=== PATIENT | female | born 1980 | race African-American/Black ===

== ENCOUNTER 2021-05-12 19:31 | Emergency (ER) | payer MEDICAID ==
[~2021-05-12] VITALS: Ht 180.3 cm; Wt 83.0 kg
[2021-05-12] MEDS ORDERED: METOCLOPRAMIDE HCL 5MG/ml INJ 2ml VIAL IV ONE (23:00)
[2021-05-12] MEDS ORDERED: SODIUM CHLORIDE 0.9% 1,000 ML IV ONE (23:00)
[2021-05-12] MEDS ORDERED: ACETAMINOPHEN 325 MG TAB PO ONE (23:00)
[2021-05-12] MEDS ORDERED: KETOROLAC TROMETH 30 MG/ML 1ML VIAL IV ONE (23:00)
[2021-05-12 23:24] LABS: Basophils # (auto) 0.1 10 ^3/uL (0-0.2); Basophils % (auto) 0.7 % (0.0-2.0); Eosinophils # (auto) 0.1 10 ^3/uL (0-0.8); Hemoglobin 14.7 g/dL (12.2-16.2); Lymphocytes # (auto) 2.5 10 ^3/uL (0.4-5.4); Lymphocytes % (auto) 28.1 % (10.0-50.0); Mean Corpuscular Hemoglobin 29.4 pg (28.0-32.0); Mean Corpuscular Hgb Conc. 34.2 g/dL (32.0-36.0); Monocytes # (auto) 0.5 10 ^3/uL (0-1.3); Monocytes % (auto) 5.6 % (0.0-12.0); Neutrophils # (auto) 5.7 10 ^3/uL (1.6-8.6); Neutrophils % (auto) 64.6 % (37.0-80.0); Nucleated Red Blood Cells % 0.1 %; Red Blood Cells 4.99 10^6/uL (4.0-5.20); Red Cell Distribution Width 14.2 % (11.8-14.3); White Blood Cell 8.9 10^3/uL (4.4-10.8)
[2021-05-13 01:08] VITALS: BP 108/75
== END 2021-05-13 01:14 | disposition home or self-care (01) ==
LOC: ER 19:31
DX: R07.89 Other chest pain (principal); R51.9 Headache, unspecified; J45.909 Unspecified asthma, uncomplicated; Z90.710 Acquired absence of both cervix and uterus; Z88.5 Allergy status to narcotic agent; Z88.8 Allergy status to other drugs, medicaments and biological substances; Z91.018 Allergy to other foods; Z91.040 Latex allergy status
CPT/HCPCS: 36415; 70450; 71046; 83880; 84484; 85025; 93005; 96361; 96374; 96375; 99285; J1885; J2765; J7030; 80053

== ENCOUNTER 2021-09-23 16:06 | Emergency (ER) | payer MEDICAID ==
[~2021-09-23] VITALS: Ht 177.8 cm; Wt 81.6 kg
[2021-09-23 19:48] LABS: Albumin 4.1 g/dL (3.4-5.0); Calcium 9.1 mg/dL (8.5-10.1); Potassium 4.1 mmol/L (3.5-5.1)
[2021-09-23 19:52] LABS: BUN/Creatinine Ratio 14.9; Bilirubin, Total 0.5 mg/dL (0.2-1.0); Total Protein 9.3 g/dL (6.4-8.2)
[2021-09-23 20:12] LABS: Basophils # (auto) 0.1 10 ^3/uL (0-0.2); Basophils % (auto) 0.5 % (0.0-2.0); Eosinophils # (auto) 0 10 ^3/uL (0-0.8); Eosinophils % (auto) 0.3 % (0.0-7.0); Hematocrit 44.6 % (36.0-46.0); Hemoglobin 15.4 g/dL (12.2-16.2); Lymphocytes # (auto) 1.7 10 ^3/uL (0.4-5.4); Lymphocytes % (auto) 15.6 % (10.0-50.0); Mean Corpuscular Hemoglobin 29.7 pg (28.0-32.0); Mean Corpuscular Hgb Conc. 34.6 g/dL (32.0-36.0); Mean Corpuscular Volume 85.9 fL (80.0-100.0); Monocytes # (auto) 0.5 10 ^3/uL (0-1.3); Monocytes % (auto) 4.6 % (0.0-12.0); Neutrophils # (auto) 8.5 10 ^3/uL (1.6-8.6); Nucleated Red Blood Cells % 0.1 %; Red Blood Cells 5.19 10^6/uL (4.0-5.20); Red Cell Distribution Width 13.7 % (11.8-14.3); White Blood Cell 10.7 10^3/uL (4.4-10.8)
[2021-09-23 21:17] LABS: Urine Bacteria NONE SEEN /hpf (None Seen); Urine Blood Negative /uL (Negative); Urine Hyaline Cast FEW /lpf (0 - 2); Urine Mucus FEW (None Seen); Urine Specific Gravity 1.022 (1.001-1.035); Urine WBC 1 /hpf (0 - 5)
[2021-09-23] MEDS ORDERED: ONDA-144 PO (22:57)
[2021-09-23] MEDS ORDERED: HYDR-4902 PO (22:57)
[2021-09-23] MEDS ORDERED: CIPR-173 PO (23:02)
[2021-09-24 00:21] VITALS: BP 123/67
== END 2021-09-24 00:33 | disposition home or self-care (01) ==
LOC: ER 16:06 → EDUNIT# 16:06 → EDBD 16:06 → ER 09-24 00:33
DX: K52.9 Noninfective gastroenteritis and colitis, unspecified (principal); J45.909 Unspecified asthma, uncomplicated; Z79.1 Long term (current) use of non-steroidal anti-inflammatories (NSAID); Z90.710 Acquired absence of both cervix and uterus; Z79.899 Other long term (current) drug therapy; Z88.5 Allergy status to narcotic agent; Z91.018 Allergy to other foods; Z91.040 Latex allergy status
CPT/HCPCS: 36415; 74176; 80053; 81001; 83605; 84702; 85025; 93005

== ENCOUNTER 2023-09-18 04:36 | Inpatient (IN) | payer MEDICAID ==
[~2023-09-18] VITALS: Ht 180.3 cm; Wt 102.8 kg
[~2023-09-18 04:36] MED LIST: CIPR-173 PO; HYDR-4902 PO; ONDA-144 PO
[2023-09-18 06:20] LABS: Basophils # (auto) 0 10 ^3/uL (0-0.2); Basophils % (auto) 0.4 % (0.0-2.0); Eosinophils # (auto) 0 10 ^3/uL (0-0.8); Eosinophils % (auto) 0.2 % (0.0-7.0); Hematocrit 40.3 % (36.0-46.0); Lymphocytes % (auto) 10.7 % (10.0-50.0); Mean Corpuscular Hemoglobin 28.1 pg (28.0-32.0); Mean Corpuscular Hgb Conc. 32.3 g/dL (32.0-36.0); Mean Corpuscular Volume 86.9 fL (80.0-100.0); Monocytes # (auto) 0.5 10 ^3/uL (0-1.3); Monocytes % (auto) 5.4 % (0.0-12.0); Neutrophils # (auto) 7.7 10 ^3/uL (1.6-8.6); Neutrophils % (auto) 83.3 % (37.0-80.0); Nucleated Red Blood Cells % 0.1 %; Red Blood Cells 4.63 10^6/uL (4.0-5.20); White Blood Cell 9.3 10^3/uL (4.4-10.8)
[2023-09-18 06:34] LABS: Alkaline Phosphatase 61 U/L (46-116); Aspartate Aminotransferase 10 U/L (13-40); BUN/Creatinine Ratio 19.1 (10.0-20.0); Bilirubin, Total 0.5 mg/dL (0.2-1.0); Blood Urea Nitrogen 13 mg/dL (9-23); Calcium 8.9 mg/dL (8.7-10.4); Glucose 95 mg/dL (74-106); Total Protein 7.2 g/dL (5.7-8.2)
[2023-09-18 06:40] LABS: Alanine Aminotransferase < 9 U/L (7-40)
[2023-09-18 06:42] LABS: Chloride 105 mmol/L (98-107); Potassium 3.9 mmol/L (3.5-5.1); Sodium 135 mmol/L (136-145)
[2023-09-18 06:45] LABS: Anion Gap 5 (5-15); Carbon Dioxide 25 mmol/L (20-30)
[2023-09-18] MEDS: KETOROLAC TROMETH 30 MG/ML 1ML VIAL IV ONE (06:45)
[2023-09-18] MEDS: ONDANSETRON HCL 4 MG/2 ML VIAL IV ONE (06:45)
[2023-09-18] MEDS: SODIUM CHLORIDE 0.9% 1,000 ML IV ONE (06:45)
[2023-09-18 07:15] LABS: Urine Bacteria None Seen /hpf (None Seen)
[2023-09-18 07:30] LABS: Urine Blood Negative /uL (Negative); Urine Clarity Clear (Clear); Urine Color Light-Yellow (Yellow); Urine Protein, UAD Negative (Negative); Urine Specific Gravity 1.017 (1.001-1.035); Urine Urobilinogen Normal (Negative); Urine WBC <1 /hpf (0 - 5); Urine pH 5.5 (5.0-9.0)
[2023-09-18] MEDS: metroNIDAZOLE 500MG/100ML 100 ML IV ONE (07:30)
[2023-09-18] MEDS ORDERED: MORPHINE SULFATE INJ 2 MG/ml SYRG IV PRN (08:45)
[2023-09-18] MEDS: SODIUM CHLORIDE 0.9% 1,000 ML IV SCH (08:45)
[2023-09-18] MEDS: PIPERACILLIN-TAZOB 3.375GM 100 ML IV ONE (08:45)
[2023-09-18 09:09] LABS: INR 0.98 (0.9-1.15); Prothrombin Time 10.4 sec (9.3-11.8)
[2023-09-18 13:00] VITALS: BP 128/78; PULSE 58; RESP 18; TEMP 97.9; O2SAT 100
[2023-09-18] MEDS: PIPERACILLIN-TAZOB 3.375GM 100 ML IV SCH ×2 (14:03→21:40)
[2023-09-18] MEDS: HYDROmorphone HCL 2 MG/ML VL/or syr IV PRN (14:13)
[2023-09-18] MEDS ORDERED: BECL80AE11 INH (15:25)
[2023-09-18] MEDS ORDERED: ALBU108A5 INH (15:25)
[2023-09-18 17:00] VITALS: BP 110/63; PULSE 69; RESP 18; TEMP 98.8; O2SAT 98
[2023-09-18 20:00] VITALS: BP 115/69; PULSE 71; RESP 16; TEMP 98.7; O2SAT 95
[2023-09-18 22:00] VITALS: BP 115/69; PULSE 71; RESP 16; TEMP 98.7; O2SAT 95
[2023-09-18] MEDS ORDERED: ATOR10TA PO (23:13)
[2023-09-18] MEDS ORDERED: ASPI-543 PO (23:13)
[2023-09-19] VITALS (14 sets, daily range): BP systolic 90–148; BP diastolic 44–71; PULSE 57–80; RESP 14–18; TEMP 98.1–98.7; O2SAT 96–100
[2023-09-19 06:34] LABS: Basophils # (auto) 0 10 ^3/uL (0-0.2); Basophils % (auto) 0.7 % (0.0-2.0); Eosinophils # (auto) 0.1 10 ^3/uL (0-0.8); Hematocrit 36.2 % (36.0-46.0); Hemoglobin 11.9 g/dL (12.2-16.2); Lymphocytes # (auto) 1.6 10 ^3/uL (0.4-5.4); Lymphocytes % (auto) 23.9 % (10.0-50.0); Mean Corpuscular Hemoglobin 28.3 pg (28.0-32.0); Mean Corpuscular Hgb Conc. 32.8 g/dL (32.0-36.0); Mean Corpuscular Volume 86.1 fL (80.0-100.0); Monocytes # (auto) 0.6 10 ^3/uL (0-1.3); Neutrophils # (auto) 4.3 10 ^3/uL (1.6-8.6); Neutrophils % (auto) 65.4 % (37.0-80.0); Nucleated Red Blood Cells % 0.1 %; Red Blood Cells 4.21 10^6/uL (4.0-5.20); Red Cell Distribution Width 13.7 % (11.8-14.3); White Blood Cell 6.7 10^3/uL (4.4-10.8)
[2023-09-19 06:45] LABS: Albumin 3.8 g/dL (3.2-4.8); Alkaline Phosphatase 57 U/L (46-116); Anion Gap 6 (5-15); Aspartate Aminotransferase 8 U/L (13-40); BUN/Creatinine Ratio 11.8 (10.0-20.0); Bilirubin, Total 0.9 mg/dL (0.2-1.0); Blood Urea Nitrogen 10 mg/dL (9-23); Carbon Dioxide 27 mmol/L (20-30); Chloride 107 mmol/L (98-107); Glucose 91 mg/dL (74-106); Potassium 3.4 mmol/L (3.5-5.1); Sodium 140 mmol/L (136-145); Total Protein 6.6 g/dL (5.7-8.2)
[2023-09-19 06:50] LABS: Alanine Aminotransferase < 9 U/L (7-40)
[2023-09-19] MEDS: IPRATROPIUM BROM 0.5 MG/2.5ML INH SOL NEB SCH (12:21)
[2023-09-19] MEDS: ALBUTEROL SULF 2.5 MG/0.5ML(0.5%) NEB SOLN NEB SCH (12:21)
[2023-09-19] MEDS: POTASSIUM CHL 20 Meq TABLET PO ONE (13:16)
[2023-09-19] MEDS: HYDROcodone-ACET 5/325MG TAB PO PRN (13:17)
[2023-09-19] MEDS: metroNIDAZOLE 500MG/100ML 100 ML IV SCH (13:50)
[2023-09-19] MEDS: SODIUM CHLORIDE 0.9% 1,000 ML IV SCH (13:50)
[2023-09-20] VITALS (13 sets, daily range): BP systolic 94–121; BP diastolic 55–64; PULSE 52–97; RESP 14–18; TEMP 97.6–98.4; O2SAT 98–100
[2023-09-20 06:30] LABS: Basophils # (auto) 0 10 ^3/uL (0-0.2); Basophils % (auto) 0.3 % (0.0-2.0); Eosinophils # (auto) 0.1 10 ^3/uL (0-0.8); Eosinophils % (auto) 1.2 % (0.0-7.0); Hematocrit 35.1 % (36.0-46.0); Hemoglobin 11.3 g/dL (12.2-16.2); Lymphocytes # (auto) 1.4 10 ^3/uL (0.4-5.4); Lymphocytes % (auto) 21.5 % (10.0-50.0); Mean Corpuscular Hgb Conc. 32.2 g/dL (32.0-36.0); Mean Corpuscular Volume 86.7 fL (80.0-100.0); Monocytes # (auto) 0.6 10 ^3/uL (0-1.3); Monocytes % (auto) 9.8 % (0.0-12.0); Neutrophils # (auto) 4.4 10 ^3/uL (1.6-8.6); Neutrophils % (auto) 67.2 % (37.0-80.0); Nucleated Red Blood Cells % 0.1 %; Red Blood Cells 4.05 10^6/uL (4.0-5.20); Red Cell Distribution Width 13.9 % (11.8-14.3); White Blood Cell 6.5 10^3/uL (4.4-10.8)
[2023-09-20 06:31] LABS: Anion Gap 4 (5-15); Carbon Dioxide 25 mmol/L (20-30); Chloride 109 mmol/L (98-107); Potassium 3.5 mmol/L (3.5-5.1); Sodium 138 mmol/L (136-145)
[2023-09-20 06:37] LABS: BUN/Creatinine Ratio 10.3 (10.0-20.0); Blood Urea Nitrogen 6 mg/dL (9-23); Glucose 92 mg/dL (74-106)
[2023-09-20 09:23] LABS: Hepatitis B Surface Antigen Negative (Negative)
[2023-09-20 09:45] LABS: Hepatitis C Antibody Negative (Negative)
[2023-09-20] MEDS: cefTRIAXone 1GM/50ML D5W 50 ML IV SCH (10:13)
[2023-09-20] MEDS: SODIUM CHLORIDE 0.9% 1,000 ML IV SCH (10:13)
[2023-09-21] VITALS (12 sets, daily range): BP systolic 97–152; BP diastolic 55–64; PULSE 53–78; RESP 16–20; TEMP 97.5–98.5; O2SAT 95–100
[2023-09-21] MEDS: SODIUM CHLORIDE 0.9% 500 ML IV ONE (11:02)
[2023-09-21] MEDS: cefTRIAXone 1GM/50ML D5W 50 ML IV ONE (13:32)
[2023-09-22] VITALS (11 sets, daily range): BP systolic 110–127; BP diastolic 65–79; PULSE 60–88; RESP 16–20; TEMP 97.5–98.4; O2SAT 98–100
[2023-09-22] MEDS: ONDANSETRON HCL 4 MG/2 ML VIAL IV PRN (05:56)
[2023-09-22] MEDS: HYDROmorphone HCL 2 MG/ML VL/or syr IV PRN (05:58)
[2023-09-22 06:30] LABS: Basophils # (auto) 0 10 ^3/uL (0-0.2); Basophils % (auto) 0.4 % (0.0-2.0); Eosinophils # (auto) 0.1 10 ^3/uL (0-0.8); Eosinophils % (auto) 1.4 % (0.0-7.0); Hematocrit 33.2 % (36.0-46.0); Hemoglobin 10.9 g/dL (12.2-16.2); Lymphocytes # (auto) 1.6 10 ^3/uL (0.4-5.4); Lymphocytes % (auto) 27.5 % (10.0-50.0); Mean Corpuscular Hemoglobin 28.6 pg (28.0-32.0); Mean Corpuscular Hgb Conc. 32.8 g/dL (32.0-36.0); Mean Corpuscular Volume 87.3 fL (80.0-100.0); Monocytes # (auto) 0.5 10 ^3/uL (0-1.3); Monocytes % (auto) 8.9 % (0.0-12.0); Neutrophils # (auto) 3.7 10 ^3/uL (1.6-8.6); Neutrophils % (auto) 61.8 % (37.0-80.0); Red Blood Cells 3.81 10^6/uL (4.0-5.20); Red Cell Distribution Width 13.9 % (11.8-14.3); White Blood Cell 5.9 10^3/uL (4.4-10.8)
[2023-09-22 06:47] LABS: Albumin 3.6 g/dL (3.2-4.8); Alkaline Phosphatase 48 U/L (46-116); Anion Gap 4 (5-15); Aspartate Aminotransferase 8 U/L (13-40); Bilirubin, Total 0.4 mg/dL (0.2-1.0); Calcium 8.6 mg/dL (8.5-10.1); Carbon Dioxide 25 mmol/L (20-30); Chloride 111 mmol/L (98-107); Glucose 89 mg/dL (74-106); Potassium 3.7 mmol/L (3.5-5.1); Sodium 140 mmol/L (136-145)
[2023-09-22 06:48] LABS: Total Protein 6.3 g/dL (5.7-8.2)
[2023-09-22 06:53] LABS: Alanine Aminotransferase < 9 U/L (7-40); BUN/Creatinine Ratio 7.5 (10.0-20.0); Blood Urea Nitrogen < 5 mg/dL (9-23)
[2023-09-22] MEDS: cefTRIAXone 2GM/50ML D5W 50 ML IV SCH (09:07)
[2023-09-22] MEDS: DOCUSATE SOD 100 MG CAP PO PRN (21:25)
[2023-09-23] VITALS (11 sets, daily range): BP systolic 100–122; BP diastolic 56–69; PULSE 63–82; RESP 16–20; TEMP 98–98.7; O2SAT 96–100
[2023-09-23 06:15] LABS: Basophils # (auto) 0 10 ^3/uL (0-0.2); Basophils % (auto) 0.5 % (0.0-2.0); Eosinophils # (auto) 0.1 10 ^3/uL (0-0.8); Hematocrit 38.3 % (36.0-46.0); Hemoglobin 12.1 g/dL (12.2-16.2); Lymphocytes # (auto) 1.7 10 ^3/uL (0.4-5.4); Lymphocytes % (auto) 26.7 % (10.0-50.0); Mean Corpuscular Hemoglobin 28.4 pg (28.0-32.0); Mean Corpuscular Hgb Conc. 31.6 g/dL (32.0-36.0); Mean Corpuscular Volume 90.1 fL (80.0-100.0); Monocytes # (auto) 0.5 10 ^3/uL (0-1.3); Monocytes % (auto) 8.2 % (0.0-12.0); Neutrophils # (auto) 4.1 10 ^3/uL (1.6-8.6); Neutrophils % (auto) 63.6 % (37.0-80.0); Nucleated Red Blood Cells % 0.1 %; Red Blood Cells 4.25 10^6/uL (4.0-5.20); Red Cell Distribution Width 14.6 % (11.8-14.3); White Blood Cell 6.5 10^3/uL (4.4-10.8)
[2023-09-23 06:33] LABS: Chloride 110 mmol/L (98-107); Potassium 3.7 mmol/L (3.5-5.1); Sodium 137 mmol/L (136-145)
[2023-09-23 06:34] LABS: Anion Gap 6 (5-15); Calcium 9.2 mg/dL (8.7-10.4); Carbon Dioxide 21 mmol/L (20-30)
[2023-09-23 06:39] LABS: Glucose 89 mg/dL (74-106)
[2023-09-23 06:42] LABS: BUN/Creatinine Ratio 7.1 (10.0-20.0); Blood Urea Nitrogen < 5 mg/dL (9-23)
[2023-09-23] MEDS ORDERED: IOHEXOL 300 MG/ML 100ML BOTTLE IJ ONE (09:53)
[2023-09-24] VITALS (10 sets, daily range): BP systolic 108–122; BP diastolic 62–76; PULSE 66–79; RESP 16–18; TEMP 97–98.2; O2SAT 96–100
[2023-09-24] MEDS ORDERED: DOCU-94 PO (10:25)
[2023-09-24] MEDS ORDERED: LEVO500T91 PO (10:25)
[2023-09-24] MEDS ORDERED: MET500T PO (10:25)
[2023-09-24] MEDS: DOCUSATE SOD 100 MG CAP PO ONE (11:29)
== END 2023-09-24 13:45 | disposition home or self-care (01) | DRG 244 ==
LOC: ER 04:36 → EDBD 04:36 → OVERFLOW 10:31 → EAST 12:05
PROVIDERS: ADMIT Nurse Practitioner Family; ATTEND Internal Medicine
DX: K57.32 Diverticulitis of large intestine without perforation or abscess without bleeding (principal); K56.7 Ileus, unspecified; I95.9 Hypotension, unspecified; J45.909 Unspecified asthma, uncomplicated; E66.9 Obesity, unspecified; E03.9 Hypothyroidism, unspecified; Z91.018 Allergy to other foods; Z98.891 History of uterine scar from previous surgery; Z90.710 Acquired absence of both cervix and uterus; Z68.31 Body mass index [BMI] 31.0-31.9, adult
CPT/HCPCS: 36415; 74176; 74177; 80048; 80053; 81001; 81025; 84443; 85025; 85610; 86803; 87340; 93005; 94640; G0378; J2405; J2543; J3490

== ENCOUNTER 2025-03-17 22:52 | Emergency (ER) | payer MEDICAID ==
[~2025-03-17 22:52] MED LIST changes: +ALBU108A5 INH; +ASPI-543 PO; +ATOR10TA PO; +BECL80AE11 INH; -CIPR-173 PO; +DOCU-94 PO; -HYDR-4902 PO; +LEVO500T91 PO; +MET500T PO; -ONDA-144 PO
[2025-03-17 22:53] VITALS: BP 107/72; RESP 18; O2SAT 97
[2025-03-17 23:47] LABS: Hematocrit 39.2 % (36.0-46.0); Hemoglobin 13.1 g/dL (12.2-16.2); Mean Corpuscular Hemoglobin 28.9 pg (28.0-32.0); Mean Corpuscular Volume 86.3 fL (80.0-100.0); Nucleated Red Blood Cells % 0.1 %
--- NOTE | 2025-03-18 00:05 | DVH ---
CHEST RADIOGRAPH Indication: cp Technique: Single frontal view of the chest was obtained Comparison: CHEST TWO VIEWS ROUTINE on DOS: 05/12/21 FINDINGS: Lines and Tubes: None Lungs: No focal consolidation. Pleura: No effusion. No pneumothorax. Cardiomediastinal contours: Unremarkable Bones: No acute osseous abnormality. IMPRESSION: 1. No acute cardiopulmonary disease.
[2025-03-18 00:08] VITALS: PULSE 49
[2025-03-18 00:18] LABS: Chloride 105 mmol/L (98-107); Potassium 3.7 mmol/L (3.5-5.1); Sodium 142 mmol/L (136-145)
[2025-03-18 00:20] LABS: Anion Gap 11 (5-15); Calcium 9.0 mg/dL (8.7-10.4); Carbon Dioxide 26 mmol/L (20-31)
[2025-03-18 00:25] LABS: BUN/Creatinine Ratio 13.4 (10.0-20.0); Blood Urea Nitrogen 9 mg/dL (9-23); Glucose 95 mg/dL (74-106)
--- NOTE | 2025-03-18 00:35 | ED.PDOC ---
HPI Comments Patient complaining of left-sided chest wall pain has been intermittent for the last three days. States he has been getting worse. Reports it as sharp and dull at the same time. Says she does have a history of asthma she has been having coughing fits over the last four days. Was concerned when the pain was not improving today. No fever no chills nothing makes it better, nothing makes it worse Chief Complaint: Chest Pain Time Seen by MD: 23:36 Primary Care Provider: DR. DUNCAN Reviewed Notes: Nurses Notes Allergies: Coded Allergies: Latex (Verified Allergy, Unknown, 05/12/21) Morphine (Verified Allergy, Unknown, 05/12/21) Mushroom Extract Complex (Verified Allergy, Unknown, 05/12/21) Uncoded Allergies: IVORY (Allergy, Unknown, 05/12/21) MUSHROOMS (Allergy, Unknown, 05/12/21) Home Meds Active Scripts Docusate Sodium (Colace) 100 Mg Cap, 1 CAP PO BID PRN for 30 Days, #60 CAP 1 Refill Prov:MARIS KILPATRICK MD 09/24/23 Metronidazole (Metronidazole) 500 Mg Tab, 500 MG PO TID for 10 Days, #30 TAB Prov:MARIS KILPATRICK MD 09/24/23 Levofloxacin Hemihydrate (LEVAQUIN 500 MG) 500 Mg Tab, 500 MG PO DAILY for 10 Days, #10 TAB Prov:MARIS KILPATRICK MD 09/24/23 Reported Medications Atorvastatin Calcium (Lipitor) 10 Mg Tab, 1 TAB PO DAILY@DINNER, #30 TAB 5 Refills 09/18/23 Aspirin (Aspir-Low) 81 Mg Tab, 81 MG PO DAILY for 30 Days, MG 09/18/23 Beclomethasone Dipropionate (Qvar Redihaler) 80 Mcg/Act Aer, 2 PUFF INH BID 09/18/23 Albuterol Sulfate (Albuterol Sulfate Hfa) 108 Mcg/Act Aer, 2 PUFF INH Q4HPRN PRN for asthma 09/18/23 Information Source: Patient Mode of Arrival: Ambulatory Past Medical History PAST MEDICAL HISTORY: Asthma, Cancer Surgical History: Hysterectomy 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 History Family History Family History: Family hx of heart vickie Social History Smoker: Non-Smoker Alcohol: Denies ETOH Use Drugs: Denies Drug Use Lives In: Home Constitutional: denies: chills, diaphoresis, fatigue, fever, malaise, sweats, weakness, others EENTM: denies: blurred vision, double vision, ear bleeding, ear discharge, ear drainage, ear pain, ear ringing, eye pain, eye redness, hearing loss, mouth pain, mouth swelling, nasal discharge, nose bleeding, nose congestion, nose pain, photophobia, tearing, throat pain, throat swelling, voice changes, others Respiratory: denies: cough, hemoptysis, orthopnea, SOB at rest, shortness of breath, SOB with excertion, stridor, wheezing, others Cardiovascular: reports: chest pain; denies: dizzy spells, diaphoresis, Dyspnea on exertion, edema, irregular heart beat, left arm pain, lightheadedness, palpitations, PND, syncope, others Gastrointestinal: denies: abdomen distended, abdominal pain, blood streaked bowels, constipated, diarrhea, dysphagia, difficulty swallowing, hematemesis, melena, nausea, poor appetite, poor fluid intake, rectal bleeding, rectal pain, vomiting, others Genitourinary: denies: abnormal vagina bleeding, burning, dyspareunia, dysuria, flank pain, frequency, hematuria, incontinence, pain, , vagina discharge, urgency, others Neurological: denies: dizziness, fainting, headache, left sided numbness, left sided weakness, numbness, paresthesia, pre-existing deficit, right sided numbne ss, right sided weakness, seizure, speech problems, tingling, tremors, weakness, others Musculoskeletal: denies: back pain, gout, joint pain, joint swelling, muscle pain, muscle stiffness, neck pain, others Integumetry: denies: bruises, change in color, change in hair/nails, dryness, laceration, lesions, lumps, rash, wounds, others Allergic/Immunocompromised: denies: Difficulty Healing, Frequent Infections, Hives, Itching, others Physical Exam General Appearance: No Apparent Distress, Normal HEENT: Normal ENT Inspection, Pharynx Normal, TMs Normal Neck: Full Range of Motion, Non-Tender, Normal, Normal Inspection Respiratory: Chest Non-Tender, Lungs Clear, No Accessory Muscle Use, No Respiratory Distress, Normal Breath Sounds Cardiovascular: No Edema, No JVD, No Murmur, No Gallop, Normal Peripheral Pulses, Regular Rate/Rhythm, Other (Chest pain reproducible with palpation) Breast Exam: Deferred Gastrointestinal: No Organomegaly, Non Tender, No Pulsatile Mass, Normal Bowel Sounds, Soft Genitalia: Deferred Pelvic: Deferred Rectal: Deferred Extremities: No calf tenderness, Normal capillary refill, Normal inspection, Normal range of motion, Non-tender, No pedal edema Musculoskeletal : Apperance: Normal Neurologic: Alert, records officer II-XII nml as Tested, No Motor Deficits, Normal Affect, Normal Mood, No Sensory Deficits Cerebellar Function: Normal Reflexes: Normal Skin: Dry, Normal Color, Warm Lymphatic: No Adenopathy Was a procedure done? Was a procedure done?: No CP Differential Dx Differential Diagnosis: Angina, Anxiety / Panic Attack, NE X-Ray, Labs, Meds, VS Vital Signs Date Time Temp Pulse Resp B/P (MAP) Pulse Ox O2 Delivery O2 Flow Rate FiO2 03/18/25 00:08 49 03/17/25 23:02 67 03/17/25 22:53 65 18 107/72 97 Lab Test 03/18/25 00:19 03/17/25 23:05 Range/Units Troponin I High Sensitivity Pending < 3 L </=34 ng/L White Blood Count 9.7 4.4-10.8 10^3/uL Red Blood Count 4.54 4.0-5.20 10^6/uL Hemoglobin 13.1 12.2-16.2 g/dL Hematocrit 39.2 36.0-46.0 % Mean Corpuscular Volume 86.3 80.0-100.0 fL Mean Corpuscular Hemoglobin 28.9 28.0-32.0 pg Mean Corpuscular Hemoglobin Concent 33.5 32.0-36.0 g/dL Red Cell Distribution Width 14.0 11.8-14.3 % Platelet Count 273 140-450 10^3/uL Mean Platelet Volume 8.6 6.9-10.8 fL Neutrophils (%) (Auto) 66.3 37.0-80.0 % Lymphocytes (%) (Auto) 24.3 10.0-50.0 % Monocytes (%) (Auto) 7.9 0.0-12.0 % Eosinophils (%) (Auto) 0.7 0.0-7.0 % Basophils (%) (Auto) 0.8 0.0-2.0 % Neutrophils # (Auto) 6.4 1.6-8.6 10 ^3/uL Lymphocytes # (Auto) 2.4 0.4-5.4 10 ^3/uL Monocytes # (Auto) 0.8 0-1.3 10 ^3/uL Eosinophils # (Auto) 0.1 0-0.8 10 ^3/uL Basophils # (Auto) 0.1 0-0.2 10 ^3/uL Nucleated Red Blood Cells 0.1 % Sodium Level 142 136-145 mmol/L Potassium Level 3.7 3.5-5.1 mmol/L Chloride Level 105 98-107 mmol/L Carbon Dioxide Level 26 20-31 mmol/L Anion Gap 11 5-15 Blood Urea Nitrogen Pending Creatinine Pending Glomerular Filtration Rate Calc Pending BUN/Creatinine Ratio Pending Serum Glucose Pending Calcium Level 9.0 8.7-10.4 mg/dL X-Ray, Labs, Meds, VS Comment Imaging was reviewed by this provider, there is no obvious pathological or acute disease process. Pending radiology review Labs were reviewed by this provider, no abnormalities Vital signs reviewed by this provider, clinically stable Time of 1ST Reevaluation: 00:35 Reevaluation 1ST: Improved Patient Education/Counseling: Diagnosis, Treatment, Need For Follow Up (Follow up with PCP next available appointment. Return to the emergency department if symptoms worsen.) Family Education/Counseling: Diagnosis, Treatment SEPSIS Sepsis Screen Date sepsis recognized/suspect: Mar 17, 2025 Time Sepsis recognized/suspect: 2252 Recent Procedure: No On Antibiotic Therapy: No Respiratory Rate >20: No Heart Rate >90: No Temp<36 C (96.8 F) or >38.3 C: No SBP <90 or MAP <65 mmHG: No New Acute Mental Status Change: No Is the patient on CPAP, BIPAP,: No Physician Orders Basic Metabolic Panel (03/17/25 23:36) Chest Xray 1 View (03/17/25 23:36) Troponin-I Hs (03/18/25 00:36) Troponin-I Hs (03/18/25 02:36) Electrocardigram (03/17/25 23:39) Electrocardigram (03/18/25 00:39) Electrocardigram (03/18/25 02:39) Vital Signs Date Time Temp Pulse Resp B/P (MAP) Pulse Ox O2 Delivery O2 Flow Rate FiO2 03/18/25 00:08 49 03/17/25 23:02 67 03/17/25 22:53 65 18 107/72 97 Laboratory Tests Test 03/17/25 23:05 White Blood Count 9.7 10^3/uL (4.4-10.8) Departure 1 Departure Time of Disposition: 00:34 Impression: Primary Impression: Musculoskeletal chest pain Disposition: HOME / SELF CARE / HOMELESS Condition: Stable Discharged With: Self Critical Care Note Critical Care Time?: No Stability Stability form required: No Heart Score Heart Score: Heart Score Response (Comments) Value History N/A 0 EKG N/A 0 Age N/A 0 Risk Factors N/A 0 Troponin N/A 0 Total 0 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
[2025-03-18] MEDS ORDERED: CYCL-837 PO (01:05)
[2025-03-18] MEDS: KETOROLAC TROMETH 30 MG/ML 1ML VIAL IM ONE (01:15)
[2025-03-18] MEDS: methylPREDNISolone SOD SUCC 125 MG/2 ML VL IM ONE (01:15)
--- NOTE | 2025-03-18 12:00 | ECG ---
[facility] Test Date: 2025-03-17 Test Time: 23:02:01 Pat Name: BEVERLY CARDONA Department: Room: Gender: F Document Reviewer: EO : 1980 Requested By: CLARICE BARRON* Order Number: [id number] Reading MD: Marlo Shelton Measurements Intervals [place] Rate: 67 P: 31 [place]: 168 QRS: 50 QRSD: 86 T: 37 QT: 433 QTc: 457 Interpretive Statements Sinus rhythm Probable left atrial enlargement Baseline wander in lead(s) V4,V5,V6 Electronically Signed On 03-20-2025 15:43:03 PST by Marlo Shelton Please click the below link to view image of tracing.
--- NOTE | 2025-03-18 12:00 | ECG ---
[facility] Test Date: 2025-03-18 Test Time: 00:08:24 Pat Name: BEVERLY CARDONA Department: Room: Gender: F Measurement Supervisor: : 1980 Requested By: CLARICE BARRON* Order Number: [id number] Reading MD: Marlo Shelton Measurements Intervals [place] Rate: 49 P: 10 TN: 174 QRS: 64 QRSD: 87 T: 49 QT: 447 QTc: 404 Interpretive Statements Sinus bradycardia Electronically Signed On 03-20-2025 15:43:16 PST by Marlo Shelton Please click the below link to view image of tracing.
== END 2025-03-18 01:23 | disposition home or self-care (01) ==
LOC: ER 22:52
DX: R07.89 Other chest pain (principal); J45.909 Unspecified asthma, uncomplicated; Z88.5 Allergy status to narcotic agent; Z90.710 Acquired absence of both cervix and uterus; Z91.040 Latex allergy status; Z79.51 Long term (current) use of inhaled steroids; Z79.82 Long term (current) use of aspirin; Z79.899 Other long term (current) drug therapy
CPT/HCPCS: 36415; 71045; 80048; 84484; 85025; 93005; 96372; 99285; J1885; J2919